=== PATIENT | female | born 1950 | race Caucasian/White ===

== ENCOUNTER → 2016-11-19 | Outpatient (REF) | payer MEDICARE, OTHER ==
[2016-11-19 17:26] LABS: CREATININE FOR GFR 1.04 MG/DL (0.55-1.02); GLOMERULAR FILTRATION RATE 56.6 (>45)
== END ==
LOC: M LABDRAW1 14:51
PROVIDERS: ATTEND Physician Assistant
DX: M50.30 Other cervical disc degeneration, unspecified cervical region (principal)